=== PATIENT | female | born 1985 | race Caucasian/White ===

== ENCOUNTER 2017-10-11 16:39 | Emergency (ER) | payer SELFPAY ==
--- NOTE | 2017-10-11 16:59 | ED Physician Chart ---
ED Chief Complaint/HPI - Patient Information Date Seen:: 10/11/17 Time Seen:: 16:52 Chief Complaint:: History of Present Illness:: 32 yo homeless female, , LMP mid May 2017, presented for a care visit. She had not seen an [facility] yet. She had no nausea, vomiting or abdominal pain. She felt movements. She denied any alcohol use. She had been smoking 1-2 cigarettes a week. She also occasionally used methamphitamine. She had not taken any vitamin yet. She denied any vaginal bleed or discharge. ED Review of Systems - Review of Systems General/Constitutional: No fever Skin: No skin lesions Head: No headache Eyes: No pain ENT: No nasal drainage Neck: No neck pain Cardio Vascular: No chest pain Pulmonary: No SOB GI: No nausea, No vomiting Flume Maker: No vaginal discharge, No abnormal vaginal bleed Musculoskeletal: No bone or joint pain Psychiatric: No prior psych history Neurological: No focal symptoms ED Past Medical History - Past Medical History Past Medical History: No significant medical hx Social History: Smoker, No Alcohol, Illicit Drug Use (methamphetamine) Surgical History: None Family Medical History - Family Member Mother History Unknown: Yes ED Physical Exam - Physical Examination General/Constitutional: Awake, Alert Head: Atraumatic Eyes: PERRL Skin: No skin lesions ENMT: Nasal exam nl Neck: No nuchal rigidity Respiratory: Clear to Auscultation, No Wheeze/Rhonchi/Rales Cardio Vascular: RRR, No murmur, gallop, rubs, NL S1 S2 GI: No tenderness/rebounding/guarding Extremities: normal strength in all extremities Neuro/Psych: Alert/oriented ED Labs/Radiology/EKG Results - Lab Results Results: Laboratory Results - last 24 hr 10/11/17 10/11/17 17:16 17:16 WBC 9.4 RBC 3.42 L Hgb 10.7 L Hct 31.9 L MCV 93.3 MCH 31.2 H MCHC Differential 33.5 RDW 12.5 Plt Count 351 MPV 7.3 Neutrophils % 78.2 Lymphocytes % 15.1 L Monocytes % 5.8 Eosinophils % 0.6 Basophils % 0.3 Sodium 135 L Potassium 3.3 L Chloride 105 Carbon Dioxide 23.2 Anion Gap 10.1 BUN 9 Creatinine 0.4 L Est GFR ( Amer) > 60.0 Est GFR (Non-Af Amer) > 60.0 BUN/Creatinine Ratio 22.5 Glucose 94 Calcium 8.7 Total Bilirubin 0.3 AST 20 ALT 23 Alkaline Phosphatase 143 H Total Protein 5.9 L Albumin 3.0 L Globulin 2.9 Albumin/Globulin Ratio 1.0 Beta HCG, Quant [id number] H* - Radiology Results Results: Ob ultrasound: single viable intrauterine gestation in trimester ED Assessment - Assessment General Assessment: Second trimester gestation Anemia Hypokalemia Assessment/Comments:: CBC, CMP, hCG Ob ultrasound NS 1L IV bolus (patient refused) KCL 20mEq (patient refused) Patient eloped ED Septic Shock - . Is Septic Shock (SBP<90, OR Lactate>4 mmol\L) present?: No ED Reassessment (Disposition) - Reassessment Reassessment Condition:: Unchanged - Patient Disposition Discharge/Transfer:: Elope/AWOL ED Discharge Plan - Patient Disposition Admit/Discharge/Transfer: PATIENT ELOPED Condition at Disposition: Stable
[2017-10-11 17:24] LABS: % BASOPHILS 0.3 % (0.0-2.0); % EOSINOPHILS 0.6 % (0.0-5.0); % LYMPHOCYTES 15.1 % (20.0-50.0); % MONOCYTES 5.8 % (2.0-10.0); % NEUTROPHILS 78.2 % (40.0-80.0); EOSINOPHILE ABSOLUTE 0.1 Th/cmm (0.1-0.4); HEMATOCRIT 31.9 % (41.0-60); HEMOGLOBIN 10.7 gm/dL (12-16); LYMPHOCYTE ABSOLUTE 1.4 Th/cmm (1.5-3.0); MEAN CELL VOLUME 93.3 fl (81-100); MEAN CORPUSCULAR HEMOGLOBIN 31.2 pg (27.0-31.0); MEAN CORPUSCULAR HGB CONC 33.5 pg (28.0-36.0); MEAN PLATELET VOLUME 7.3 fl; MONOCYTE ABSOLUTE 0.5 Th/cmm (0.3-1.0); NEUTROPHILE ABSOLUTE 7.4 Th/cmm (1.8-8.0); PLATELET COUNT 351 Th/cmm (150-400); RED BLOOD COUNT 3.42 Mil/cmm (3.80-5.10); RED CELL DISTRIBUTION WIDTH 12.5 % (11.5-20.0); WHITE BLOOD COUNT 9.4 Th/cmm (4.8-10.8)
[2017-10-11 17:41] LABS: ALKALINE PHOSPHATASE 143 U/L (34-104); ANION GAP 10.1 (7.0-16.0); BILIRUBIN,TOTAL 0.3 mg/dL (0.3-1.0); BUN - UREA NITROGEN 9 mg/dL (7-25); CALCIUM SERUM 8.7 mg/dL (8.6-10.3); CARBON DIOXIDE 23.2 mEq/L (21.0-31.0); CHLORIDE 105 mEq/L (98-107); CREATININE - SERUM 0.4 mg/dL (0.6-1.2); GFR AFRICAN-AMERICAN > 60.0 ml/min (>90); GFR NON AFRICAN-AMERICAN > 60.0 ml/min; GLUCOSE 94 mg/dL (70-105); POTASSIUM SERUM 3.3 mEq/L (3.5-5.1); SGOT 20 U/L (13-39); SGPT/ALT 23 U/L (7-52); SODIUM SERUM 135 mEq/L (136-145); TOTAL PROTEIN,SERUM 5.9 gm/dL (6.0-8.3)
[2017-10-11] MEDS ORDERED: Sodium Chloride 0.9% 1,000 ML IV ONE (17:47)
[2017-10-11] MEDS ORDERED: Potassium Chloride 20 mEq ER Tab PO ONE (17:47)
[2017-10-11 18:17] LABS: HCG QUANT 135835 mIU/mL (0-0)
--- NOTE | 2017-10-12 10:14 | Diagnostic Imaging Report ---
Exam: ultrasound. HISTORY: Positive exam. 5: Real-time ultrasound examination of the pelvis was performed multiple planes. The study demonstrates single live intrauterine gestation with fetus in cephalic presentation. Cardiac. The at 1 47 bpm appreciated. The amount of amniotic fluid is normal MIGUEL 10.7 cm. Placenta anterior grade 2 The cervix is closed. Serial measurements of BPD of 7.4 cm HC 26.8 cm Before meals 25.3 cm FL 5.5 cm Roughly correspond to estimated gestational age of 29 weeks 0 days. anatomy identified: normal four-chamber heart, three-vessel CORD, stomach, urinary bladder, spine is poorly seen. IMPRESSION: Single live intrauterine gestation with fetus in cephalic presentation. Estimated gestational age 29 weeks 0 days TAY 12/27/2017 Estimated weight 1374 g.
== END 2017-10-11 18:10 | disposition left against medical advice (07) ==
LOC: ER 16:39
DX: O26.892 Other specified pregnancy related conditions, second trimester (principal); O99.332 Smoking (tobacco) complicating pregnancy, second trimester; Z3A.00 Weeks of gestation of pregnancy not specified; Z59.0 Homelessness
CPT/HCPCS: 36415-UA; 76802-TC; 80053-TC; 84702-TC; 85025-TC; J7030